=== PATIENT | male | born 1940 | race Caucasian/White ===

== ENCOUNTER 2019-06-16 22:25 | Inpatient (IN) | payer BC ==
[2019-06-16 22:56] LABS: Hemoglobin 12.2 g/dL (14.0-18.0); Mean Corpuscular HGB CONC 33.7 g/dL (32.0-36.0); Mean Corpuscular Hemoglobin 33.2 pg (27.0-31.0); Mean Corpuscular Volume 98.7 fL (78.0-98.0); Mean Platelet Volume 8.3 fL (7.4-10.4); Platelet Count 244 thou/uL (130-400); RBC Distribution Width 12.7 % (11.5-14.5); Red Blood Cell (RBC) Count 3.66 mill/uL (4.70-6.10); White Blood Cell (WBC) Count 11.4 thou/uL (4.8-10.8)
[2019-06-16 23:13] LABS: Eosinophils 2 % (0-10); Howell Jolly Bodies MODERATE = 3-5 cells (100X) (None Seen); Lymphocytes 11 % (21-51); MDiff Complete? YES; Monocytes 9 % (0-10); Neutrophil 78 % (42-75); Pappenheimer Bodies SLIGHT = 1-2 cells (100X) (None Seen); Spherocytes SLIGHT = 1-5 cells (100X) (None Seen)
[2019-06-16 23:17] LABS: ALT (SGPT) 16 U/L (8-55); AST (SGOT) 13 U/L (5-34); Alkaline Phosphatase 69 U/L (40-110); Anion Gap 12 mmol/L (10-20); BUN (Urea Nitrogen) 48 mg/dL (8.4-25.7); Bilirubin, Total 0.3 mg/dL (0.2-1.2); Calc. Creatinine Clearance 0 mL/min (70-130); Carbon Dioxide 25 mmol/L (23-31); Chloride 104 mmol/L (98-107); Estimated GFR-MDRD 21; Globulin 3.4 g/dL (2.4-3.5); Glucose 139 mg/dL (83-110); Lipase 19 U/L (8-78); Potassium 4.2 mmol/L (3.5-5.1); Protein, Total 7.4 g/dL (5.8-8.1); Sodium 137 mmol/L (136-145)
[2019-06-16 23:53] LABS: Bacteria/HPF None Seen HPF (None Seen); Bilirubin Negative (Negative); Blood, Urine Negative (Negative); Clarity Clear (Clear); Glucose, Urine (Dipstick) Normal (Negative); Leukocyte 75 Leu/uL (Negative); Nitrite Negative (Negative); Protein, Urine (Dipstick) 10 mg/dL (Neg-Trace); RBC/HPF 0-3 HPF (0-3); Squamous Epithelial 0-3 HPF (0-3); Urobilinogen Normal mg/dL (Less than 2)
[2019-06-17] MEDS ORDERED: Morphine 4 MG/ML VIAL ONE (01:53)
[2019-06-17] MEDS ORDERED: Levofloxacin 500 mg/D5W 100 ml Premix Bag ONE (03:22)
[2019-06-17] MEDS ORDERED: Fentanyl 100 MCG/2 ML VIAL ONE (03:23)
[2019-06-17] MEDS ORDERED: Ondansetron HCl/PF 4 MG/2 ML Vial IVP PRN ×2 (03:53→03:54)
[2019-06-17] MEDS ORDERED: Promethazine HCl 25 MG/ML VIAL SLOW IVP PRN ×2 (03:53→03:54)
[2019-06-17] MEDS ORDERED: Promethazine HCl 25 MG/ML VIAL IM PRN ×2 (03:53→03:54)
[2019-06-17] MEDS ORDERED: HYDROmorphone 2 MG/ML VIAL SLOW IVP PRN (03:54)
[2019-06-17] MEDS ORDERED: Morphine Sulfate 2 MG/ML SYRINGE SLOW IVP PRN (03:54)
[2019-06-17] MEDS ORDERED: PACU-Morphine 4MG/ML VIAL SLOW IVP PRN (03:54)
--- NOTE | 2019-06-17 04:17 | CON ---
DATE OF CONSULTATION: 06/17/2019 HISTORY OF PRESENT ILLNESS: This is a 79-year-old white male who has been sick for 7 days with left-sided abdominal pain, subjective fever and chills, and poor appetite and general malaise. He got bad enough, 2 days ago he went to [facility] with the same complaints, was told he likely had diverticulitis and was sent home on Cipro and Flagyl, which I believe he has been taking. He was told to return to the ER if his pain got worse. His pain got worse today, so he came here to [facility]. He had a noncontrast CAT scan done here that showed some left-sided hydronephrosis and a lower 3rd left ureteral stone. He has some vascular calcifications. He also has a couple other small calcifications in the left kidney. The right side does not appear to be hydronephrotic. His creatinine has gone from 1.3 to 2.8. His white count is slightly elevated at 11.4. Urinalysis today shows white cells, very few red cells, and no bacteria. MEDICAL HISTORY: He had a stone that he passed a number of years ago, did not require surgery for it, was not very painful. He has had perhaps a left ureteral polyp or lesion, apparently it was not cancer. This was about 30 years ago, probably one of the took care of him. They removed the part of it that was in the bladder, but they did not molly it up the ureter. He has not really had any trouble related to this. There is no history of prostate cancer, prostate surgery, or family history of prostate surgery. To his knowledge he has not had any other urinary tract infections. He is not having burning with urination. He has not seen blood in the urine. He does have some urinary frequency and urgency, but it has been worse for the last few days. He does have some hypertension. He has a history of gout and a history of asthma. PAST SURGICAL HISTORY: He has had an appendectomy, a hernia. He has had the cystoscopic exam for left ureteral growth of some sort. He has had a meniscal repair on his right knee. He has had no history of joint replacement, cardiac valve surgery, or cardiac valve problems. MEDICATIONS: Include 1. Lisinopril. 2. Allopurinol. 3. Montelukast. ALLERGIES: HE HAS NO KNOWN DRUG ALLERGIES. SOCIAL HISTORY: He does not smoke. He does not drink much. He is . His actually is not with him right now, she is back at his house. PHYSICAL EXAMINATION: BACK: He has left CVA tenderness. ABDOMEN: Mildly tender left lower quadrant. There is no rebound. There is no guarding. PELVIC: He is circumcised. He has no lesions. The testicles are descended without any mass or tenderness. IMPRESSION: Left lower 3rd ureteral stone with some left hydronephrosis, recent Staphylococcus species growing in his urine pending. Seven days of malaise with subjective fever and chills and a creatinine that has gone from 1.3 to 2.8. I was asked to give my thoughts on him and he is going to be admitted by the hospitalist team and I think it will be safer for him at his age to have a cysto and a stent placed to make sure that kidneys drain, to make sure if there is any infection that it can be drained and then he will need to be admitted by the hospitalist after that. He has received vancomycin today in the ER, which would certainly cover for the Staph. He has been on some oral Cipro. We will go ahead and give him a dose of Levaquin to cover him for the next 24 hours in that regard. Procedure will be a cysto, left retrograde, and left stent. Job ID: [id number]
[2019-06-17] MEDS ORDERED: Acetaminophen 1,000 MG in Premix Bag 1 BAG IVPB SCH (04:30)
--- NOTE | 2019-06-17 05:08 | OP ---
DATE OF PROCEDURE: 06/17/2019 PREOPERATIVE DIAGNOSES: Left ureteral stone, urinary tract infection, acute kidney injury. POSTOPERATIVE DIAGNOSES: Left ureteral stone, urinary tract infection, acute kidney injury. PROCEDURE PERFORMED: Cystoscopy, left retrograde, left stent. ANESTHESIA: General. ESTIMATED BLOOD LOSS: Minimal. DRAINS PLACED: A 6 x 24 Polaris double-J stent without a string attached. FINDINGS: He had a very short stricture of the bulb that was easily passed with the scope. He had a large prostate. I had some debris on the floor of the bladder, probably related to a recent urinary tract infection, had 1+ trabeculation. Did not see any obvious tumor, foreign body, or stone, but again he did have some inflammation of the bladder sykes. After placing a guidewire up the left side, he had efflux of a dark brown, very thick urine, probably just all old blood, but we did send this off for culture. DESCRIPTION OF PROCEDURE: After obtaining written and verbal consent from the patient, after adding Levaquin to the vancomycin that he had already been given, he was taken to the operating suite. He was placed in a supine position on the treatment table. PlexiPulses were placed on his lower extremities and turned on. He was given a general anesthetic and oral obturator intubation. He was then placed in the dorsal lithotomy position, sterilely prepped and draped. Cystoscopy was performed with a 22-Azeri sheath. This was well lubricated and passed under direct vision through the male urethra into the bladder with the above findings including passing the small caliber short urethral stricture of the bulb. The bladder was filled and emptied a number of times. The urine was very concentrated. It did have some debris in it. The bladder was examined with both 30 and 70-degree lens. The left ureteral orifice was identified and a 5-Azeri Pollack was flushed with contrast and placed into it. Contrast was injected in a retrograde manner. It looks like there was a filling defect right around the sacral bones. As soon as we injected this contrast, he had efflux of very thick bloody fluid coming around the stent. We fed a guidewire up the side, then removed the open-ended catheter, and then passed a stent up the side and pushed up into place with aid of a pusher so its proximal end coiled in the renal pelvis and its distal end coiled in the bladder when the wire was removed. It was effluxing dark brownish color urine which most likely was just a lot of old blood that had backed up behind the stone. We drained the bladder, removed the instruments, and the patient was taken out of the dorsal lithotomy position. He was awakened. He was extubated. He was taken by stretcher to recovery room. Job ID: [id number]
[2019-06-17] MEDS ORDERED: hydrALAZINE 20 MG/ML VIAL SLOW IVP PRN (05:25)
[2019-06-17] MEDS ORDERED: Ondansetron ODT 4 MG TAB PO PRN (05:25)
[2019-06-17] MEDS ORDERED: Acetaminophen 500 MG TAB PO PRN (05:25)
[2019-06-17] MEDS ORDERED: Ondansetron PF 4 MG/2 ML Vial IVP PRN (05:25)
[2019-06-17 05:28] VITALS: BMI 29.4
[2019-06-17] MEDS: Sodium Chloride 0.9% 1,000 ML IV SCH ×2 (06:03→09:08)
--- NOTE | 2019-06-17 06:33 | HP ---
PRIMARY CARE PROVIDER: Dr. Lila Velasquez. CHIEF COMPLAINT: Abdominal and left flank pain. HISTORY OF PRESENT ILLNESS: This is a 79-year-old male, who presented to [facility] Emergency Department complaining of approximately 1-week history of abdominal pain and left flank pain associated with fever, chills, generalized weakness and poor oral intake. The patient states he felt ill over approximately 1 week time and was apparently diagnosed with diverticulitis and empirically treated with oral Flagyl and ciprofloxacin. The patient states the symptoms progressed becoming sharp and stabbing in nature, unremitting even with oral codeine. The patient denied dysuria, hematuria, melena or hematochezia. Patient localizes most of the pain in the left flank region, rating at 8/10 in the emergency department. The patient denied any specific travel history, recent instrumentation, surgical intervention, or family members with similar symptoms. The patient does admit to history of prior diverticulitis. In the emergency room, the patient underwent general evaluation including CT imaging of the abdomen and pelvis showing evidence of obstructive process in the left ureter consistent with calculus. The patient was also noted with acute kidney injury with a creatinine of 2.8. The patient was initially placed on IV fluids in addition to vancomycin and extremity in addition to vancomycin and morphine sulfate. The patient was evaluated by the Urology Service due to the left ureteral calculus and associated acute kidney injury and taken for a primary cystoscopy. The patient underwent retrograde pyelogram and subsequent left ureteral stent placement. The patient was transferred to the surgical isidro postoperatively for further antibiotic therapy. PAST MEDICAL HISTORY: 1. History of diverticulitis. 2. Hypertension. 3. Asthma. PAST SURGICAL HISTORY: 1. Status post left knee meniscal repair. 2. Status post hernia repair. 3. Status post appendectomy. CURRENT MEDICATIONS: 1. Allopurinol 100 mg p.o. daily. 2. Lisinopril 10 mg p.o. daily. 3. Singulair 10 mg p.o. daily. 4. Albuterol sulfate 90 mcg inhaled q.i.d. p.r.n. ALLERGIES: NO KNOWN DRUG ALLERGIES. FAMILY HISTORY: No inheritable disease per patient report. SOCIAL HISTORY: Social alcohol use. No tobacco or illicit drug use. Functional of all activities of daily living. REVIEW OF SYSTEMS: CONSTITUTIONAL: Negative for weight loss or gain, ability to conduct usual activities. SKIN: Negative for rash, itching. EYES: Negative for double vision, pain. ENT/MOUTH: Negative for nose bleeding, neck stiffness, pain, tenderness. CARDIOVASCULAR: Negative for palpitations, dyspnea on exertion, orthopnea. RESPIRATORY: Negative for shortness of breath, wheezing, cough, hemoptysis, fever or night sweats. GASTROINTESTINAL: Negative for poor appetite, abdominal pain, heartburn, nausea, vomiting, constipation, or diarrhea. GENITOURINARY: Negative for urgency, frequency, dysuria, nocturia. MUSCULOSKELETAL: Negative for pain, swelling. NEUROLOGIC/PSYCHIATRIC: Negative for anxiety, depression. ALLERGY/IMMUNOLOGIC: Negative for skin rash, bleeding tendency. Otherwise negative except as stated per HPI. PHYSICAL EXAMINATION: VITAL SIGNS: On admission, blood pressure 122/64, pulse 92, respiratory rate 20, temperature 99.1 degrees Fahrenheit, O2 saturation 95% on room air. GENERAL APPEARANCE: This is a 79-year-old male, alert and oriented x3, pleasant, responsive, in no acute distress. HEENT: Pupils are equal, round, reactive to light and accommodation. Extraocular muscles are intact. No scleral icterus. No conjunctival injection. Nares patent. OP is clear. Teeth in fair repair. Oral mucosa dry. NECK: Supple. No cervical adenopathy. No thyromegaly. No carotid bruits. No JVD appreciated. Cervical spine with full active and passive range of motion. No meningeal signs noted. CHEST: Lungs are clear to auscultation bilaterally. CARDIOVASCULAR: S1, S2 without noted murmur, rub, or gallop. ABDOMEN: Obese, soft, mild tenderness to palpation in the left flank and left lower quadrant without guarding or rebound. Bowel sounds are positive in all 4 quadrants. EXTREMITIES: Warm and dry with fair turgor. No clubbing, cyanosis, or asymmetric edema appreciated. Pulses palpable distally at the dorsalis pedis, posterior tibial, and popliteal arteries bilaterally. Capillary refill less than 2 seconds. NEUROLOGIC: Cranial nerves 2 through 12 are grossly intact. No focal or lateralizing signs appreciated. PERTINENT LABORATORY AND X-RAY FINDINGS: Sodium 137, potassium 4.2, chloride 104, CO2 of 25, BUN 48, creatinine 2.88, estimated GFR 21, glucose 139, calcium 9.0. LFTs within normal limits. Lipase 19. CBC showed a white blood cell count of 11.4, hemoglobin 12, hematocrit 36, MCV 99, platelet count 244 with 78% neutrophils. Urinalysis positive for leukocyte esterase with 7-10 wbcs per high-power field. IMAGING: CT of the abdomen and pelvis dated 06/17/2019, showed left ureteral calculus. ASSESSMENT/PLAN: 1. Left ureterolithiasis. Status post left retrograde pyelogram with left ureteral stent placement. Continue Levaquin 500 mg IV q.24 hours. Await final urine culture results. 2. Acute kidney injury on chronic kidney disease stage 3. Avoid nephrotoxic agents and limit contrast exposure. Status post left ureteral stent placement. Continue intravenous normal saline at 100 mL/hour. Repeat creatinine in the a.m. 3. Urinary tract infection secondarily to #1. Continue IV Levaquin 500 mg daily. Await final urine culture results. 4. Hypertension. Resume home antihypertensive regimen and monitor clinical response. 5. Prophylaxis. Sequential compression devices while in bed. Pepcid 20 mg p.o. b.i.d. CODE STATUS: Full. Surrogate medical decision maker is the patient's spouse. Job ID: [id number]
[2019-06-17] MEDS ORDERED: FLU VACC TS2019-20(65YR UP)/PF 180 MCG/0.5 ML SYRINGE IM ONE (06:45)
[2019-06-17] MEDS ORDERED: Prevnar 13-Val Conj/PF 0.5 ML SYRINGE IM ONE (06:45)
--- NOTE | 2019-06-17 08:00 | CT ---
PRELIMINARY REPORT/[facility]/EMERGENCY AFTER HOURS PROCEDURE: PROCEDURE INFORMATION: Exam: CT Abdomen And Pelvis Without Contrast Exam date and time: 06/17/2019 1:02 AM Clinical history: 79 years old, male; Abdominal pain; Patient HX: 79yom with a pmh significant for di verticulosis, HTN & asthma who presents for evaluation for left flank pain with associated fever/chil ls, generalized weakness and decreased po intake. Reports he felt "ill" all last week with fluctuating fever/chills and generalized weakness and went to urgent care on Sunday, 06/14 where he was diagnosed with diverticulitis TECHNIQUE: Imaging protocol: Computed tomography of the abdomen and pelvis without contrast. COMPARISON: No relevant prior studies available. FINDINGS: Lungs: There are a few subcentimeter nodules in each lung, for example 5 mm right lung base series 30 1, image 6 and nodule versus atelectasis left lung base series 301, image 17. Liver: No liver masses. Gallbladder and bile ducts: Normal appearance of the gallbladder. No ductal dilation. Pancreas: No pancreatic mass or ductal dilation. Calcifications throughout the pancreas. Spleen: No splenic masses. Adrenals: No adrenal nodules. Kidneys and ureters: Simple cysts and indeterminate lesions in the bilateral kidneys, for example exophytic lesion measuring approximate 1.7 cm medial aspect of the right kidney superior pole and 1.7 cm lateral aspect left kidney superior pole. There is a 4.5 x 3 mm stone in the distal left ureter r esulting in moderate hydroureteronephrosis and perinephric and periureteral fat stranding. Subcentimeter calcifications in the inferior pole of the left kidney could be within a cyst. Stomach and bowel: Colonic diverticulosis most prominent of the descending and sigmoid colon. Sigmoid colon wall thickening likely related to chronic diverticulitis. Appendix: The appendix is not visualized, however there are no inflammatory changes in the right lowe r quadrant to suspect appendicitis. Intraperitoneal space: No free air or free fluid. Vasculature: Atherosclerosis of the aorta without aneurysm. Lymph nodes: No lymphadenopathy. Bladder: Normal. Reproductive: Mild prostate enlargement. Bones/joints: No suspicious bone lesions. Soft tissues: Bilateral fat-containing inguinal hernias. Partially visualized superficial 1 cm subcut aneous lesion right lateral back, likely an epidermoid cyst. IMPRESSION: 1. There is a 4.5 x 3 mm stone in the distal left ureter resulting in moderate hydroureteronephrosis and perinephric and periureteral fat stranding. 2. Chronic diverticulosis of the sigmoid colon without evidence of active inflammation. 3. Defer to on-site radiologist for followup recommendations of pulmonary nodules and lesions in each kidney not measuring simple fluid density. Thank you for allowing us to participate in the care of your patient. Dictated and Authenticated by: Kianna Samano MD 06/17/2019 1:44 AM Central Time ([place] & [place]) FINAL REPORT EMERGENCY AFTER HOURS CT ABDOMEN AND PELVIS WITHOUT CONTRAST: FINDINGS/IMPRESSION: I agree with the findings and impression given in the preliminary report per [facility] physician. 1. Left ureteral calcification with moderate left hydronephrosis. 2. There are lesions emanating from both kidneys, which likely represent cysts. 3. There are tiny calcifications in the pancreas. This may be secondary to chronic pancreatitis. 4. Diverticulosis. POS: [facility]
--- NOTE | 2019-06-17 08:04 | RAD ---
INTRAPROCEDURE FLUOROSCOPY FOR RETROGRADE IVP: COMPARISON: None. FINDINGS: Three intraoperative fluoroscopic views demonstrate retrograde opacification of the left intra and ex tra renal collecting system. Left ureteral stent is placed, incompletely evaluated. IMPRESSION: Intraoperative fluoroscopy as above. Transcribed Date/Time: 06/17/2019 8:30 AM
[2019-06-17] MEDS ORDERED: Famotidine 20 MG TAB PO SCH (09:00)
[2019-06-17] MEDS: Famotidine 20 MG TAB PO SCH (09:08)
[2019-06-17 09:33] LABS: Anion Gap 11 mmol/L (10-20); BUN (Urea Nitrogen) 38 mg/dL (8.4-25.7); Calc. Creatinine Clearance 29 mL/min (70-130); Carbon Dioxide 24 mmol/L (23-31); Chloride 106 mmol/L (98-107); Estimated GFR-MDRD 29; Glucose 105 mg/dL (83-110); Potassium 4.5 mmol/L (3.5-5.1); Sodium 136 mmol/L (136-145)
[2019-06-17] MEDS ORDERED: Ondansetron PF 4 MG/2 ML Vial ONE (11:03)
[2019-06-17] MEDS ORDERED: PROPOFOL 200 MG/20 ML VIAL ONE (11:03)
[2019-06-17] MEDS ORDERED: Lidocaine 1% PF 5 ML VIAL ONE (11:03)
--- NOTE | 2019-06-17 14:51 | PDOC.HOSPP ---
- Subjective Encounter Date: 06/17/19 Encounter Time: 11:45 Subjective: 79 y/o male with diverticulosis, HTN and asthma admitted with left flank and abdominal pain associated with fever and chills. Found to have elevated creat and CT showed nephrolithiasis with obstruction. S/p cyystoscopy with stent placement. feeling better. - Objective Vital Signs & Weight: Vital Signs (12 hours) Temp Pulse Resp BP BP Pulse Ox 06/17/19 11:15 98.0 F 76 14 124/68 98 06/17/19 08:00 95 06/17/19 07:11 98.2 F 68 14 113/66 95 06/17/19 05:30 95 06/17/19 04:55 99.7 F H 88 18 104/66 95 Weight Weight 166 lb I&O: 06/16/19 06/17/19 06/18/19 06:59 06:59 06:59 Intake Total 300 Balance 300 Result Diagrams: 06/16/19 22:43 06/17/19 08:38 Hospitalist ROS - Medication Medications: Active Medications Generic Name Dose Route Start Last Admin Trade Name Freq PRN Reason Stop Dose Admin Famotidine 20 mg 06/17/19 09:00 06/17/19 09:08 Pepcid PO Not Given 0900 NEENA Sodium Chloride 1,000 mls @ 100 mls/hr 06/17/19 05:30 06/17/19 09:08 Normal Saline 0.9% IV 1,000 mls .Q10H NEENA Administration Sodium Chloride 10 ml 06/17/19 09:00 06/17/19 09:18 Flush - Normal Saline IVF Not Given Q12HR NEENA - Exam General Appearance: awake alert Eye: anicteric sclera ENT: normocephalic atraumatic, moist mucosa Neck: supple, symmetric Heart: RRR, no murmur Respiratory: no wheezes, no rales, no ronchi, normal chest expansion Gastrointestinal: soft, non-tender, non-distended, normal bowel sounds Extremities: no cyanosis, no edema Neurological: cranial nerve grossly intact, no focal deficits Psychiatric: normal affect, A&O x 3 Hosp A/P (1) Sepsis Code(s): A41.9 - SEPSIS, UNSPECIFIED ORGANISM Status: Acute (2) МАРИЯ (acute kidney injury) Code(s): N17.9 - ACUTE KIDNEY FAILURE, UNSPECIFIED Status: Acute (3) Nephrolithiasis Status: Acute (4) Hydronephrosis, left Code(s): N13.30 - UNSPECIFIED HYDRONEPHROSIS Status: Acute (5) Pyelonephritis of left kidney Code(s): N12 - TUBULO-INTERSTITIAL NEPHRITIS, NOT SPCF ACUTE OR CHRONIC Status: Acute (6) HTN (hypertension) Code(s): I10 - ESSENTIAL (PRIMARY) HYPERTENSION Status: Acute - Plan Continue IVF and antibiotics. monitor renal function, analgesic as needed.
--- NOTE | 2019-06-17 16:12 | PRG ---
DATE OF SERVICE: 06/17/2019 This is a 79-year-old white male, I am seeing today at [facility] in room 3323. In the very improvement manager hours of today, he underwent an emergent stent placement for an obstructed left ureter. Urine is still grossly bloody, kind of old tea-colored. At this point, he feels much better. His flank pain is gone. His vital signs are stable. His blood work shows that his creatinine has come down to 2.2. His urine culture from 3 days ago showing a Staph epidermidis, which is nearly pansensitive. The Cipro that he was on at home covers it. He appears to be voiding without difficulty, tolerating a diet. I think he could go home today or tomorrow and continue on the Cipro for a few days. I would like to see him in my office if he has not passed that stone in about 10 days or so, and I will arrange for that. We will need to do treatment of the stone if he has not passed by that point. Job ID: [id number]
[2019-06-18] MEDS: Sodium Chloride 0.9% 1,000 ML IV SCH ×2 (01:57→12:00)
[2019-06-18 06:24] LABS: Band 8 % (5-11); Eosinophils 1 % (0-10); Hemoglobin 10.4 g/dL (14.0-18.0); Lymphocytes 13 % (21-51); MDiff Complete? YES; Mean Corpuscular HGB CONC 33.9 g/dL (32.0-36.0); Mean Corpuscular Hemoglobin 33.8 pg (27.0-31.0); Mean Corpuscular Volume 99.6 fL (78.0-98.0); Mean Platelet Volume 8.4 fL (7.4-10.4); Monocytes 17 % (0-10); Neutrophil 61 % (42-75); Platelet Count 222 thou/uL (130-400); RBC Distribution Width 12.5 % (11.5-14.5); Red Blood Cell (RBC) Count 3.09 mill/uL (4.70-6.10); White Blood Cell (WBC) Count 7.2 thou/uL (4.8-10.8)
[2019-06-18 06:43] LABS: Anion Gap 11 mmol/L (10-20); BUN (Urea Nitrogen) 26 mg/dL (8.4-25.7); Calc. Creatinine Clearance 44 mL/min (70-130); Carbon Dioxide 21 mmol/L (23-31); Chloride 109 mmol/L (98-107); Estimated GFR-MDRD 46; Glucose 94 mg/dL (83-110); Potassium 4.3 mmol/L (3.5-5.1); Sodium 137 mmol/L (136-145)
--- NOTE | 2019-06-18 09:17 | PRG ---
DATE OF SERVICE: 06/18/2019 This is a 79-year-old male, seeing in room 3323 today at [facility]. He is 2 days out from an emergent placement of a stent for an obstructing ureteral stone. His vital signs are stable. He is afebrile. He is feeling much better, tolerating a diet. His creatinine is improving to 1.4, nearly at his baseline. Reviewing his microbiology from 2 days prior to this admission, the Staph in the urine is sensitive to Cipro, which he has, and he should go home, restart his Cipro when he is home. He is to see me in my office next week and I believe this date has already been set up with a KUB. If not pass the stone, we will look at treating it the following week. From my point, he is ready for discharge. Job ID: [id number]
[2019-06-18 11:46] VITALS: BP 136/76; TEMP 98
[2019-06-18] MEDS: Famotidine 20 MG TAB PO SCH (11:59)
--- NOTE | 2019-06-18 13:33 | DIS ---
DATE OF ADMISSION: 06/17/2019 DATE OF DISCHARGE: 06/18/2019 PRIMARY CARE PHYSICIAN: Lila Velasquez MD DISCHARGE DIAGNOSES: 1. Sepsis. 2. Complicated urinary tract infection/left pyelonephritis. 3. Left hydronephrosis. 4. Nephrolithiasis with obstruction. 5. Acute kidney injury. 6. Hypertension. 7. Left flank pain. CONSULTS: Urology. PROCEDURE PERFORMED: Cystoscopy with stent placement. HOSPITAL COURSE: A 79-year-old male with known history of diverticulosis, hypertension, and asthma, admitted with left flank pain as well as abdominal pain associated with fever and chills. The patient has been on ciprofloxacin prior to presentation. Further evaluation in the ER showed elevated creatinine, and subsequent CT scan showed nephrolithiasis with obstruction on the left side. The patient was started on broad-spectrum antibiotics and IV fluid. Urology consult was obtained, and he subsequently had cystoscopy with stent placement. IV fluid therapy was continued with improvement in creatinine from peak of 2.88 to 1.47 on discharge. Of note, prior to presentation, the patient had a urine culture on June 14, which grew Staphylococcus epidermidis, which was sensitive to almost all medications except amoxicillin, penicillin, and piperacillin. The patient was treated with IV Levaquin and discharged on oral ciprofloxacin. He is to follow up with urologist in 10 days. PHYSICAL EXAMINATION: VITAL SIGNS: Temperature 98.0, pulse 64, respiratory rate 18, SpO2 of 97 on room air, blood pressure is 136/76. GENERAL: Elderly male, in no distress. Afebrile. Anicteric. Acyanotic. HEENT: Normocephalic and atraumatic. Oral mucosa is moist. CARDIOVASCULAR: Regular rhythm and rate with normal heart sounds 1 and 2. RESPIRATORY: Good air entry bilaterally with no crackle or rhonchi or use of accessory muscles. GI: Abdomen is obese, soft, nontender, and nondistended with normal bowel sounds. EXTREMITIES: Grossly normal looking, atraumatic with no edema or erythema. SPECIAL TECHNICAL OPERATIONS OFFICER: Conscious, alert, and oriented x3 with appropriate mental status. The patient is ambulant. DISCHARGE DISPOSITION: Home. DISCHARGE CONDITION: Improved. DISCHARGE MEDICATIONS: 1. Albuterol (ProAir) 90 mcg inhalation p.r.n. 2. Allopurinol 100 mg p.o. daily. 3. Ciprofloxacin 500 mg p.o. b.i.d. 4. Montelukast 10 mg p.o. daily. 5. Acetaminophen 1000 mg q.6 p.r.n. for pain. Note that lisinopril was held due to acute kidney injury. TIME SPENT: Discharge took more than 30 minutes. FOLLOWUP: With PCP in [address] Garcia, urologist in 10 days. Job ID: [id number]
== END 2019-06-18 11:58 | disposition home or self-care (01) | DRG 854 ==
LOC: ERS 22:25 → SDC/OP 06-17 03:47 → SURG B 06-17 04:44
PROVIDERS: ADMIT Family Medicine; ATTEND Family Medicine
PROC: 0T778DZ Dilation of Left Ureter with Intraluminal Device, Via Natural or Artificial Opening Endoscopic (ICD-10-PCS; principal; 2019-06-17)
PROC: BT1FZZZ Fluoroscopy of Left Kidney, Ureter and Bladder (ICD-10-PCS; 2019-06-17)
PROC: 3E02340 Introduction of Influenza Vaccine into Muscle, Percutaneous Approach (ICD-10-PCS; 2019-06-17)
DX: A41.9 Sepsis, unspecified organism (principal); N13.6 Pyonephrosis; N17.9 Acute kidney failure, unspecified; N18.3 Chronic kidney disease, stage 3 (moderate); Z23 Encounter for immunization; I12.9 Hypertensive chronic kidney disease with stage 1 through stage 4 chronic kidney disease, or unspecified chronic kidney disease; M10.9 Gout, unspecified; J45.909 Unspecified asthma, uncomplicated; Z90.49 Acquired absence of other specified parts of digestive tract; Z79.899 Other long term (current) drug therapy; Z79.51 Long term (current) use of inhaled steroids
CPT/HCPCS: 36415; 74176; 74420; 80048; 80053; 81003; 81015; 83690; 85007; 85025; 85027; 87077; 87086; 87186; 87205; C1758; J0131; J1956; J2001; J2270; J2405; J2704; J3010; J3370

== ENCOUNTER 2019-07-02 06:00 | Day surgery (SDC) | payer BC ==
[2019-07-01 09:33] VITALS: BMI 28.3
[2019-07-02] MEDS ORDERED: Iothalamate Meglumine 60% 50 ML VIAL FS ONE (06:54)
[2019-07-02 07:01] LABS: Anion Gap 16 mmol/L (10-20); BUN (Urea Nitrogen) 23 mg/dL (8.4-25.7); Calc. Creatinine Clearance 56 mL/min (70-130); Calcium 9.3 mg/dL (7.8-10.44); Carbon Dioxide 22 mmol/L (23-31); Chloride 106 mmol/L (98-107); Estimated GFR-MDRD 63; Glucose 101 mg/dL (83-110); Potassium 4.5 mmol/L (3.5-5.1); Sodium 139 mmol/L (136-145)
[2019-07-02] MEDS ORDERED: Fentanyl 100 MCG/2 ML VIAL ONE (07:12)
[2019-07-02] MEDS ORDERED: Levofloxacin 500 mg/D5W 100 ml Premix Bag ONE (07:20)
--- NOTE | 2019-07-02 10:12 | RAD ---
RETROGRADE PYELOGRAM: HISTORY: Stent placement. FINDINGS: A series of 10 images are presented for review. The initial images show a left ureteral stent in adrian ce. Contrast is injected into the right ureter and a series of films show wire placement and stent p lacement. The final film shows good position of the stent. On the initial images, filling defect is seen in the distal right ureter and one of the final images the filling defect is seen in the proxim al right ureter. I presume that these are related to air bubbles. I do not see any right-sided calc ulus on the CT done recently. IMPRESSION: Placement of a right ureteral stent which is in good position. POS: [facility]
--- NOTE | 2019-07-02 11:50 | OP ---
DATE OF PROCEDURE: 07/02/2019 PREOPERATIVE DIAGNOSES: Left ureteral stone. POSTOPERATIVE DIAGNOSES: 1. Left ureteral stone. 2. Right ureteral tumor. PROCEDURES PERFORMED: 1. Cystoscopy. 2. Left rigid ureteroscopy with laser lithotripsy and stone retrieval with stent replacement. 3. Right retrograde pyelography. 4. Right distal ureteroscopy with stent placement. ANESTHETIC: General. ESTIMATED BLOOD LOSS: Less than 50 mL. DRAINS PLACED: He has a 4.8 x 24 cm left double-J stent with a string attached to it, coming out of the urethra. He has a right double-J stent that is a 6.0-Namibian by 24 cm without a string attach. 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 He has a large prostate. His bladder was examined both with 30 and 70-degree lens. There was no evidence of any bladder tumor, foreign body, stone, or fistula. The inflammation that was present during his cysto when the stent was placed emergently has pretty much gone except for some edema around the left ureteral orifice with indwelling stent. 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 He had a 4-6 mm stone that was over the sacrum in the lower third of the left ureter. This was broken up with the laser and removed in pieces. Number of the pieces were sent off for stone analysis. OPERATIVE INDICATIONS: This is a 79-year-old white male, who was seen a week or 2 ago with urinary tract infection and obstructing left ureter, had a stent placed emergently because of the lower third ureteral stone with associated infection. He finished his course of Cipro and he has been on Macrodantin. A repeat urine culture from my office a couple of days ago showed no growth. He is coming in now for left rigid ureteroscopy, laser lithotripsy, stone retrieval, and probable stent replacement. DESCRIPTION OF PROCEDURE: After obtained written and verbal consent from the patient after receiving IV Levaquin, he was taken to the operating suite. He was placed in the supine position on the treatment table. PlexiPulses were placed on his lower extremities and turned on. He was given a general anesthetic and oral intubation. He was then placed in the dorsal lithotomy position and was sterilely prepped and draped. Cystoscopy was performed with a 22-Namibian sheath. This was well lubricated and passed under direct vision through the male urethra, then into the bladder. Of note, there was still a short soft stricture of the bulb. This was present a couple of weeks ago, when we put the stent in. He has a large prostate. His bladder was examined with a 70-degree lens and a 30-degree lens. There was no tumor, foreign body, or stone noted. No evidence of a fistula, but there was noted effluxing tumor out of the right ureteral orifice. This was a new finding, that was not seen on his noncontrast CAT scan nor seen during his emergent cystoscopy recently. We filled and emptied his bladder a number of times and then grasped the distal end of the double-J stent, brought it out through the urethral meatus, fed a guidewire up through it, and removed the stent over the wire and discarded it. We then removed the instruments, leaving the guidewire in place. We brought in a small caliber rigid ureteroscope, that was passed through the male urethra and into the bladder with the aid of a video camera and monitor. It was then passed adjacent to the guidewire up the left ureter. The stone was encountered just over the sacrum in the lower third of the left ureter. We brought in a holmium fiber to break this up in numerous pieces and then we used a Alexandra basket to remove these fragments, dropping some of them in the bladder on a couple of swipes. Our last rigid ureteroscopy went all the way up to the ureteropelvic junction. There was no evidence of any sizable stone. There was no evidence of any stricture. There was no evidence of any filling defect or tumor. We then removed the rigid scope under direct vision. We back-loaded the guidewire through the cystoscope, passed a 5-Namibian Pollack catheter up in the region of the renal pelvis, removed the guidewire, and then injected contrast to fill out the entire left renal pelvis and the entire left ureter. There were no persistent filling defects and no evidence of extravasation. At this point, guidewire was passed back through the Pollack catheter. The Pollack catheter was removed and a 4.8 x 24 double-J stent was passed up over the guidewire and pushed up into place with the pusher, so its proximal end coiled in the renal pelvis and its distal end coiled in the bladder, when the wire was removed. The string was left attached coming out of the urethral meatus. At this point, we went ahead and brought in our 5-Namibian Pollack catheter, flushed with contrast, placed in the right ureteral orifice, and contrast was injected in a retrograde manner. The distal 2 to 3 cm of this ureter was dilated and showed a filling defect in it. We went ahead and passed the guidewire up and could not get this to go by this mass. We passed an angle-tipped Glidewire. The ureter was slightly tortuous above this mass and we were able to work the angle-tipped catheter up into the area of the renal pelvis, passed the Pollack catheter up into the renal pelvis, and then we placed a 0.03 guidewire through the open-ended catheter, removed the open-ended catheter and straightened the ureter out. We then went in adjacent to this guidewire with a small caliber rigid ureteroscope. This was a papillary appearing tumor, that may not be cancer, may be just a benign polyp. We went up as far as I could easily go in the lower 3 cm to 4 cm of the ureter, but I could not get to where the actual base of this tumor was. It was not free-floating, but attached, the ureter had been effluxing out into the bladder and even going back up the ureter with irrigation fluid. I could not find its base, and for this reason, we could not remove it. At this point, the ureteroscope was backed out. The guidewire was back loaded through the cystoscope. A Pollack was placed over the guidewire up in the area of the renal pelvis. The guidewire was removed. Contrast was injected, showing at this point a normal-appearing upper collecting system without any other filling defects or stones or tumors, and then a filling defect with some dilatation of just the lower 3 to 4 cm of the left ureter. The guidewire was then replaced through the open-ended catheter. The open-ended catheter was removed and a 6 x 24 Polaris double-J stent with a string not attached to it. It was passed over the guidewire and pushed up into place with the pusher, so that its proximal end coiled in the renal pelvis and its distal end coiled in the bladder, when the wire was removed. We made sure that the distal end of the stent was not at all incorporated with the string from the left-sided stent. At this point, the bladder was drained. The instruments were removed. The patient was taken out of the dorsal lithotomy position, awakened, extubated, and taken by stretcher to the recovery room. Job ID: [id number]
== END 2019-07-02 14:40 | disposition home or self-care (01) ==
LOC: SDC 06:00
PROVIDERS: ATTEND Urology
PROC: 0TF78ZZ Fragmentation in Left Ureter, Via Natural or Artificial Opening Endoscopic (ICD-10-PCS; principal; 2019-07-02)
PROC: 0T788DZ Dilation of Bilateral Ureters with Intraluminal Device, Via Natural or Artificial Opening Endoscopic (ICD-10-PCS; principal; 2019-07-02)
DX: N20.1 Calculus of ureter (principal); D49.59 Neoplasm of unspecified behavior of other genitourinary organ; N35.912 Unspecified bulbous urethral stricture, male; Z79.2 Long term (current) use of antibiotics; Z79.899 Other long term (current) drug therapy
CPT/HCPCS: 36415; 74420; 80048; 82365; 88300; C1758; C1769; J1956; J3010

== ENCOUNTER 2019-07-02 16:56 | Emergency (ER) | payer BC | END 2019-07-02 18:58 | disposition home or self-care (01) | LOC: ERS 16:56 | DX: R33.9 Retention of urine, unspecified (principal); I10 Essential (primary) hypertension; Z87.442 Personal history of urinary calculi; Z79.899 Other long term (current) drug therapy; Z79.51 Long term (current) use of inhaled steroids | CPT/HCPCS: 51702 ==

== ENCOUNTER 2019-07-06 12:52 | Emergency (ER) | payer BC ==
[2019-07-06 15:05] LABS: RBC/HPF Greater than 50 HPF (0-3)
[2019-07-06 15:09] LABS: Bilirubin Negative (Negative); Blood, Urine 3+ (Negative); Clarity Turbid (Clear); Glucose, Urine (Dipstick) Normal (Negative); Leukocyte 250 Leu/uL (Negative); Nitrite Negative (Negative); Protein, Urine (Dipstick) 300 mg/dL (Neg-Trace); Urobilinogen Normal mg/dL (Less than 2)
[2019-07-06 15:11] LABS: Bacteria/HPF None Seen HPF (None Seen)
[2019-07-06 15:12] LABS: Squamous Epithelial 0-3 HPF (0-3)
== END 2019-07-06 14:47 | disposition home or self-care (01) ==
LOC: ERS 12:52
DX: T83.84XA Pain due to genitourinary prosthetic devices, implants and grafts, initial encounter (principal); I10 Essential (primary) hypertension; J45.909 Unspecified asthma, uncomplicated; Z79.899 Other long term (current) drug therapy; Z79.51 Long term (current) use of inhaled steroids
CPT/HCPCS: 81003; 81015; 87086; 99284